=== PATIENT | female | born 1975 | race American Indian/Alaskan Native ===

== ENCOUNTER 2018-09-19 13:10 | Emergency (ER) | payer OTHER ==
--- NOTE | 2018-09-19 13:31 | Event Note ---
ED Screening Note Date of service: 09/19/18 Time: 13:26 ED Screening Note: This is a 43 y.o. F. that presents to the ER with dizziness, nausea, and vomiting that started today. LMP 08/29/2018 This initial assessment/diagnostic orders/clinical plan/treatment(s) is/are subject to change based on patients health status, clinical progression and re- assessment by fellow clinical providers in the ED. Further treatment and workup at subsequent clinical providers discretion. Patient/guardian urged not to elope from the ED as their condition may be serious if not clinically assessed and managed. Initial orders include: POC glucose and labs
[2018-09-19 14:31] LABS: Hematocrit 33.2 % (30.3-42.9); Hemoglobin 10.3 gm/dl (10.1-14.3); Mean Corpuscular HGB Conc 31 % (30-34); Mean Corpuscular Volume 71 fl (79-97); Platelet Count 305 K/mm3 (140-440); Red Blood Count 4.66 M/mm3 (3.65-5.03); Red Cell Distribution Width 19.6 % (13.2-15.2)
[2018-09-19 14:46] LABS: BUN/Creatinine Ratio 11; Blood Urea Nitrogen 8 mg/dL (7-17); Calcium 10.4 mg/dL (8.4-10.2); Hemolysis Index 7
[2018-09-19] MEDS ORDERED: ZOFRAN IV STA (15:00)
[2018-09-19] MEDS ORDERED: LEVSIN SL SL STA (15:00)
[2018-09-19] MEDS ORDERED: NACL 0.9% 1000 ML 1,000 ML IV ONE (15:00)
[2018-09-19 15:28] LABS: Hypochromasia 1+; Total Cells Counted 100
[2018-09-19 16:13] LABS: Bilirubin,Urine NEG (Negative); Blood,Urine NEG (Negative); Color,Urine Yellow (Yellow); Protein,Urine <15 mg/dL mg/dL (Negative); Urobilinogen,Urine < 2.0 mg/dL (<2.0)
[2018-09-19 16:20] LABS: HCG Qualitative,Urine Negative (Negative)
--- NOTE | 2018-09-19 17:56 | Cat Scan Report ---
CT ABDOMEN AND PELVIS WITH IV CONTRAST INDICATION: MAIN: epigastric pain N/ V , DIZZNIESS . COMPARISON: None available. TECHNIQUE: All CT scans at this facility use dose modulation, automated exposure control, iterative reconstructi on or weight based dosing, when appropriate, to reduce radiation dose to as low as reasonably achieva ble. FINDINGS: Lung Bases: Clear. Skeletal System: No acute abnormality. ABDOMEN: Liver: Within the posterior right hepatic lobe, there is a 4.9 cm cyst. Within the anterior left hepa tic lobe, there is a subtle hypodensity anteriorly which measures 1.3 cm on image 28. This may be inc idental hemangioma. There is a punctate cyst in the right hepatic lobe on image 26 as well. Gallbladder: Normal. Bile Ducts: Normal. Pancreas: Normal. Spleen: There is a 2.6 cm hypodense lesion in the spleen on image 22. This could be a vascular lesion . There are couple punctate hypodensities in the more anterior spleen which are too small to characte rize. Adrenals: Normal. Right Kidney: There is a punctate nonobstructing right renal stone. There is a small lateral cortex r ight renal cyst. Left Kidney: Normal. Stomach and Bowel: No dilated loops of small bowel are seen. Lymph Nodes: No significant adenopathy. Aorta: No significant abnormality. Additional Findings: None. PELVIS: Colon: Normal aside from diverticulosis. Urinary Bladder and Distal Ureters: Normal. Appendix: Not visualized. Lymph Nodes: No significant adenopathy. Additional Findings: There are asymmetrically prominent left periuterine/ovarian veins. There is a sm all amount of free fluid in the pelvis. There is a 2 cm right ovarian cyst on axial image 67. IMPRESSION: 1. The appendix is not visualized. If clinical suspicion for acute appendicitis is high, repeat exam with oral contrast should be considered. 2. Small amount of free fluid in the pelvis may be due to ruptured ovarian cyst. 3. Asymmetrically prominent left periuterine/gonadal veins are noted. This is nonspecific but could b e seen in the setting of pelvic congestion syndrome. 4. Additional, incidental findings as above. Signer Name: Homar Davies MD Signed: 09/19/2018 5:51 PM Workstation Name: [id number]
--- NOTE | 2018-09-19 18:22 | Emergency Department Report ---
ED General Adult HPI - General Chief complaint: Dizziness Stated complaint: NAUSEA/VOMITING/DIZZINESS/LIGHTHEADED Time Seen by Provider: 09/19/18 13:26 Source: patient Mode of arrival: Ambulatory Limitations: No Limitations - History of Present Illness Initial comments: 43-year-old female since was department complaining of sudden onset of presyncope associated with nausea and vomiting 3-4 episodes associated with a vague pain to the lower abdomen and a crampy, sharp in nature, off and on. She reports having a previous history of an appendectomy. He is unsure what this pain may be coming from. She reports no vaginal bleeding or vaginal discharge. No fever, chills, sweats. No chest pain or palpitations. She denies any trauma. Location: abdomen Radiation: abdomen Quality: aching Consistency: constant Associated Symptoms: loss of appetite, nausea/vomiting. denies: cough, diaphoresis, syncope, weakness - Related Data Previous Rx's Medication Instructions Recorded Last Taken Type HYDROcodone/APAP 5-325 [[place] 1 each PO Q6HR PRN #14 tablet 06/22/15 Unknown Rx 5/325] Ibuprofen [Motrin 400 MG tab] 400 mg PO Q8H PRN #20 tablet 06/22/15 Unknown Rx Ketorolac [Toradol] 10 mg PO Q6H PRN #10 tablet 09/19/18 Unknown Rx Sulfamethoxazole/Trimethoprim 1 each PO BID #20 tablet 09/19/18 Unknown Rx [Bactrim DS TAB] Allergies Allergy/AdvReac Type Severity Reaction Status Date / Time No Known Allergies Allergy Verified 09/19/18 13:19 ED Review of Systems ROS: Stated complaint: NAUSEA/VOMITING/DIZZINESS/LIGHTHEADED Other details as noted in HPI Comment: All other systems reviewed and negative ED Past Medical Hx - Past Medical History Previous Medical History?: No - Surgical History Past Surgical History?: No - Social History Smoking Status: Current Every Day Smoker Substance Use Type: Marijuana - Medications Home Medications: Home Medications Medication Instructions Recorded Confirmed Last Taken Type HYDROcodone/APAP 5-325 [[place] 1 each PO Q6HR PRN #14 tablet 06/22/15 Unknown Rx 5/325] Ibuprofen [Motrin 400 MG tab] 400 mg PO Q8H PRN #20 tablet 06/22/15 Unknown Rx Ketorolac [Toradol] 10 mg PO Q6H PRN #10 tablet 09/19/18 Unknown Rx Sulfamethoxazole/Trimethoprim 1 each PO BID #20 tablet 09/19/18 Unknown Rx [Bactrim DS TAB] ED Physical Exam - General Limitations: No Limitations General appearance: alert, in no apparent distress - Head Head exam: Present: atraumatic, normocephalic - Eye Eye exam: Present: normal appearance - ENT ENT exam: Present: mucous membranes moist - Neck Neck exam: Present: normal inspection - Respiratory Respiratory exam: Present: normal lung sounds bilaterally. Absent: respiratory distress - Cardiovascular Cardiovascular Exam: Present: regular rate, normal rhythm. Absent: systolic murmur, diastolic murmur, rubs, gallop - GI/Abdominal GI/Abdominal exam: Present: soft, tenderness (the lower abdomen. No rebound. No tenderness at McBurney's or Bautista sign. No Radhames sign, no quaternary, she hasn't appendectomy scar to the right lower quadrant), normal bowel sounds - Extremities Exam Extremities exam: Present: normal inspection - Back Exam Back exam: Present: normal inspection - Neurological Exam Neurological exam: Present: alert, oriented X3 - Psychiatric Psychiatric exam: Present: normal affect, normal mood - Skin Skin exam: Present: warm, dry, intact, normal color. Absent: rash ED Course Vital Signs 09/19/18 13:27 Temperature 97.9 F Pulse Rate 60 Respiratory 16 Rate Blood Pressure 142/77 O2 Sat by Pulse 100 Oximetry ED Medical Decision Making - Lab Data Result diagrams: 09/19/18 14:03 09/19/18 14:03 - Medical Decision Making 43-year-old female with sudden onset of nausea, vomiting, presyncope, as well as pain to the lower abdomen. CT scan shows a ruptured ovarian cyst in conjunction with renal calculi laboratory data does show that a urinary tract infection is evolving. Ms. Piper reports having some issues with episodic dizziness with position him. Hemoglobin is normal, showing no anemia. Although it is low normal. Advised on appropriate hydration status is the fluids did help to resolve some of the symptoms she was experiencing and discussed with her the proper diet and management of recurrent abdominal pain. Critical care attestation.: If time is entered above; I have spent that time in minutes in the direct care of this critically ill patient, excluding procedure time. ED Disposition Clinical Impression: Ovarian cyst, Abdominal pain, Lower abdominal pain Disposition: DC- TO HOME OR SELFCARE Is pt being admited?: No Does the pt Need Aspirin: No Condition: Stable Instructions: Ovarian Cyst (ED), Abdominal Pain (ED), Dizziness (ED), Lightheadedness (ED) Prescriptions: Sulfamethoxazole/Trimethoprim [Bactrim DS TAB] 1 each PO BID #20 tablet Ketorolac [Toradol] 10 mg PO Q6H PRN #10 tablet PRN Reason: Pain Referrals: DORA COHN MD [Primary Care Provider] - 3-5 Days
[2018-09-19 19:09] VITALS: BP 145/91
== END 2018-09-19 19:15 | disposition home or self-care (01) ==
LOC: ED 13:10
DX: N83.209 Unspecified ovarian cyst, unspecified side (principal); R11.2 Nausea with vomiting, unspecified; R55 Syncope and collapse; F17.200 Nicotine dependence, unspecified, uncomplicated; F12.10 Cannabis abuse, uncomplicated; Z90.49 Acquired absence of other specified parts of digestive tract; Z79.1 Long term (current) use of non-steroidal anti-inflammatories (NSAID); Z79.899 Other long term (current) drug therapy
CPT/HCPCS: 36415; 74177; 80048; 81001; 81025; 82962; 83690; 85007; 85025; 87086; 96361; 96374; 99284; J2405; J7030; Q9967

== ENCOUNTER 2019-02-26 07:41 | Emergency (ER) | payer SELFPAY ==
[2019-02-26] MEDS ORDERED: KETOROLAC 30 MG/1 ML INJ IM ONE (10:08)
--- NOTE | 2019-02-26 11:24 | XRay Report ---
CHEST 2 VIEWS INDICATION: fall pain. COMPARISON: None FINDINGS: Support devices: None. Heart: Within normal limits. Lungs/pleura: No acute air space or interstitial disease. No pneumothorax. Additional findings: No obvious thoracic fracture on x-ray IMPRESSION: No acute findings. Signer Name: Pato Raman Jr, MD Signed: 02/26/2019 11:19 AM Workstation Name: [id number]
--- NOTE | 2019-02-26 11:24 | XRay Report ---
Thoracic spine-2 views INDICATION: fall pain. COMPARISON: None. IMPRESSION: Cervicothoracic junction is not visualized on the lateral view. Otherwise normal alignme nt. No significant discogenic DJD or facet arthropathy. No acute osseous or soft tissue abnormality . Signer Name: Silverio Ruby MD Signed: 02/26/2019 11:20 AM Workstation Name: [id number]
--- NOTE | 2019-02-26 11:24 | XRay Report ---
LUMBAR SPINE HISTORY: Fall and pain. COMPARISON: None. TECHNIQUE: 3 view(s) of the lumbar spine obtained. FINDINGS: Vertebrae: Normal alignment. No fracture or significant abnormality. Disc Spaces:No significant abnormality. Facet Joints:No significant abnormality. Additional findings: None. IMPRESSION: 1. No significant abnormality of the lumbar spine. Signer Name: Walter Hall MD Signed: 02/26/2019 11:20 AM Workstation Name: [id number]
--- NOTE | 2019-02-26 12:19 | Emergency Department Report ---
ED General Adult HPI - General Chief complaint: Fall Stated complaint: FALL INJURY/PAIN/COUGH/RT SIDE Time Seen by Provider: 02/26/19 09:57 Source: patient Mode of arrival: Ambulatory Limitations: No Limitations - History of Present Illness Initial comments: A 43-year-old who seems to have an exaggerated response to a fall. She states he was walking a dog and fell onto a concrete stair. She complains of pain involving her lower back mid back and lateral right chest. She has no difficulty in breathing. She arrived via lift. She was fully ambulatory. It is difficult to examine and somewhat anxious. Her pain seems to be poorly localized on exam. This was a mechanical fall with no prodromal symptoms. -: Gradual, hour(s) Location: chest, back Radiation: non-radiation Severity scale (0 -10): 6 Quality: aching Consistency: constant Improves with: none Worsens with: movement Associated Symptoms: denies other symptoms Treatments Prior to Arrival: none - Related Data Previous Rx's Medication Instructions Recorded Last Taken Type HYDROcodone/APAP 5-325 [[place] 1 each PO Q6HR PRN #14 tablet 06/22/15 Unknown Rx 5/325] Ibuprofen [Motrin 400 MG tab] 400 mg PO Q8H PRN #20 tablet 06/22/15 Unknown Rx Ketorolac [Toradol] 10 mg PO Q6H PRN #10 tablet 09/19/18 Unknown Rx Sulfamethoxazole/Trimethoprim 1 each PO BID #20 tablet 09/19/18 Unknown Rx [Bactrim DS TAB] traMADoL [Ultram] 50 mg PO Q6HR PRN #10 tablet 02/26/19 Unknown Rx Allergies Allergy/AdvReac Type Severity Reaction Status Date / Time No Known Allergies Allergy Verified 02/26/19 07:58 ED Review of Systems ROS: Stated complaint: FALL INJURY/PAIN/COUGH/RT SIDE Other details as noted in HPI Constitutional: denies: chills, fever Eyes: denies: eye pain, eye discharge, vision change ENT: denies: ear pain, throat pain Respiratory: denies: cough, shortness of breath, wheezing Cardiovascular: denies: chest pain, palpitations Endocrine: no symptoms reported Gastrointestinal: denies: abdominal pain, nausea, diarrhea Genitourinary: denies: urgency, dysuria, discharge Musculoskeletal: back pain. denies: joint swelling, arthralgia Skin: denies: rash, lesions Neurological: denies: headache, weakness, paresthesias Psychiatric: denies: anxiety, depression Hematological/Lymphatic: denies: easy bleeding, easy bruising ED Past Medical Hx - Past Medical History Previous Medical History?: No - Surgical History Past Surgical History?: No - Social History Smoking Status: Current Some Day Smoker Substance Use Type: Marijuana - Medications Home Medications: Home Medications Medication Instructions Recorded Confirmed Last Taken Type HYDROcodone/APAP 5-325 [[place] 1 each PO Q6HR PRN #14 tablet 06/22/15 Unknown Rx 5/325] Ibuprofen [Motrin 400 MG tab] 400 mg PO Q8H PRN #20 tablet 06/22/15 Unknown Rx Ketorolac [Toradol] 10 mg PO Q6H PRN #10 tablet 09/19/18 Unknown Rx Sulfamethoxazole/Trimethoprim 1 each PO BID #20 tablet 09/19/18 Unknown Rx [Bactrim DS TAB] traMADoL [Ultram] 50 mg PO Q6HR PRN #10 tablet 02/26/19 Unknown Rx ED Physical Exam - General Limitations: No Limitations General appearance: alert, in no apparent distress - Head Head exam: Present: atraumatic, normocephalic - Eye Eye exam: Present: normal appearance. Absent: scleral icterus - ENT ENT exam: Present: mucous membranes moist - Neck Neck exam: Present: normal inspection, full ROM. Absent: tenderness, meningismus - Respiratory Respiratory exam: Present: normal lung sounds bilaterally, other (no crepitus or costal tenderness). Absent: respiratory distress - Cardiovascular Cardiovascular Exam: Present: regular rate, normal rhythm. Absent: systolic murmur, diastolic murmur, rubs, gallop - GI/Abdominal GI/Abdominal exam: Present: soft, normal bowel sounds. Absent: distended, tenderness, guarding, rebound, rigid - Extremities Exam Extremities exam: Present: normal inspection - Back Exam Back exam: Present: normal inspection, paraspinal tenderness (really poorly localized). Absent: CVA tenderness (R), CVA tenderness (L), muscle spasm, vertebral tenderness - Neurological Exam Neurological exam: Present: alert, oriented X3, CN II-XII intact. Absent: motor sensory deficit - Psychiatric Psychiatric exam: Present: normal affect, anxious - Skin Skin exam: Present: warm, dry, intact, normal color. Absent: rash ED Course Vital Signs 02/26/19 02/26/19 07:52 07:56 Temperature 98.3 F 98.3 F Pulse Rate 85 85 Respiratory 18 14 Rate Blood Pressure 126/92 Blood Pressure 126/92 [Right] O2 Sat by Pulse 100 100 Oximetry - Reevaluation(s) Reevaluation #1: Radiographs of the C-spine and L-spine and chest were normal. The patient improved with Toradol. On reexamination he was less anxious. Procrit for outpatient disposition. 02/26/19 12:18 ED Medical Decision Making - Radiology Data Radiology results: report reviewed (negative radiographs) Critical care attestation.: If time is entered above; I have spent that time in minutes in the direct care of this critically ill patient, excluding procedure time. ED Disposition Clinical Impression: Soft tissue injury Disposition: DC-01 TO HOME OR SELFCARE Is pt being admited?: No Does the pt Need Aspirin: No Condition: Stable Instructions: Contusion in Adults (ED) Additional Instructions: Follow-up with primary care provider. [id number] medication or Rx as needed. Return any acute change. Prescriptions: traMADoL [Ultram] 50 mg PO Q6HR PRN #10 tablet PRN Reason: Pain Referrals: PRIMARY CARE [Primary Care Provider] - 3-5 Days [facility] [Provider Group] - 3-5 Days Time of Disposition: 12:20
[2019-02-26 12:29] VITALS: BP 162/96
== END 2019-02-26 12:29 | disposition home or self-care (01) ==
LOC: ED 07:41
DX: M54.5 Low back pain (principal); M54.6 Pain in thoracic spine; R07.9 Chest pain, unspecified; F17.200 Nicotine dependence, unspecified, uncomplicated; W18.30XA Fall on same level, unspecified, initial encounter; Y93.89 Activity, other specified; Y92.89 Other specified places as the place of occurrence of the external cause; Y99.8 Other external cause status
CPT/HCPCS: 71046; 72070; 72100; 96372; 99283; J1885